=== PATIENT | female | born 1965 | race Caucasian/White ===

== ENCOUNTER 2016-07-29 08:44 | Day surgery (SDC) | payer MEDICARE, MEDICAID ==
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
[~2016-07-29 08:44] MED LIST: Famotidine IV* 10 MG/ML 2 ML (20 mg) IV ONE; Lidocaine 1% INJ* 10 MG/ML 30 ML SDV ONE
[2016-07-29] MEDS ORDERED: Famotidine IV* 10 MG/ML 2 ML (20 mg) ONE (09:01)
[2016-07-29] MEDS ORDERED: Buffered Lidocaine 1% SYRIN* 5 ML/SYR SYRINGE ONE (09:19)
[2016-07-29] MEDS ORDERED: fentaNYL* 50 MCG/ML 2 ML VIAL (100 MCG VIAL) ONE (09:21)
[2016-07-29] MEDS ORDERED: Midazolam* 1 MG/ML 5 ML VIAL (5 MG) ONE (09:21)
[2016-07-29] MEDS ORDERED: Propofol* 10 MG/ML 20 ML BTL IV PUSH ONE (09:24)
[2016-07-29] MEDS ORDERED: Ondansetron INJ* 2 MG/ML VIAL ONE (09:24)
[2016-07-29] MEDS ORDERED: Ketorolac INJ* 30 MG/ML 1 ML VIAL ONE (09:24)
[2016-07-29] MEDS ORDERED: Lidocaine 2% PF * 5 ML VIAL ONE (09:24)
[2016-07-29] MEDS ORDERED: Acetaminophen TAB* 325 MG PO PRN (09:43)
[2016-07-29 10:34] VITALS: BP 136/70
--- NOTE | 2016-07-30 00:17 | OP ---
DATE OF OPERATION: 07/29/16 [facility] DATE OF : 67 SURGEON: Lorie Galeas MD INFORMATION SECURITY ARCHITECT: DAPHNE Plascencia ANESTHESIOLOGIST: Sarah Ledezma MD ANESTHESIA: Local MAC. PRE-OP DIAGNOSIS: Left long finger, trigger finger. POST-OP DIAGNOSIS: Left long finger trigger finger. OPERATIVE PROCEDURE: Left long finger trigger release. ESTIMATED BLOOD LOSS: Zero. TOURNIQUET TIME: About 5 minutes. INDICATIONS FOR PROCEDURE: Jessy is a 51-year-old female with clicking and locking of her left long finger. She has failed conservative treatment and presents now for long finger trigger release. DESCRIPTION OF PROCEDURE: The patient was brought to the operating room, was given a sedation anesthetic and a local infiltration of 10 cc of 1% plain lidocaine in the palm of her left hand overlying the A1 shelley of the middle finger. Skin of her left hand and forearm was prepped and draped in the usual sterile fashion. The hand and forearm were exsanguinated and the tourniquet elevated to 250 mmHg. A transverse incision was made, centered over the A1 shelley of the left long finger. We dissected bluntly through the subcutaneous tissue. The digital neurovascular bundles were retracted by the surgical services manager, Bereket Guajardo. The A1 shelley was incised longitudinally completely releasing the FDS and FDP tendons, which were in good conditions. The wound was irrigated and the skin edges were reapproximated with 4-0 nylon suture. The wound was dressed with Xeroform, 4x4, Webril, and an Todd wrap. The patient tolerated the procedure well, was brought to the recovery room in good condition. [id number]/[facility] #: [id number] [facility]
== END 2016-07-29 10:46 | disposition home or self-care (01) ==
LOC: OREAST 08:44
PROVIDERS: ATTEND Orthopaedic Surgery
DX: M65.332 Trigger finger, left middle finger (principal); I10 Essential (primary) hypertension; J44.9 Chronic obstructive pulmonary disease, unspecified; Z72.0 Tobacco use; E11.9 Type 2 diabetes mellitus without complications; Z79.4 Long term (current) use of insulin
CPT/HCPCS: J1885; J2001; J2250; J2405; J2704; J3010

== ENCOUNTER 2017-06-22 13:06 | Emergency (ER) | payer MEDICARE, MEDICAID ==
[2017-06-22 13:21] VITALS: BP 135/83
--- NOTE | 2017-06-22 14:53 | RAD ---
INDICATION: RIGHT wrist and forearm pain involving the distal radius and first through third fingers following lifting injury 3 days ago. History of neuropathy. COMPARISON: No prior exams available on the [facility] PACS for comparison. TECHNIQUE: AP, lateral, and oblique views RIGHT wrist. AP and lateral views RIGHT forearm. REPORT AND IMPRESSION: Negative for fracture or articular malalignment at the forearm or wrist. No significant arthropathic change evident. Mild dorsal soft tissue swelling at the forearm and wrist.
--- NOTE | 2017-06-22 14:53 | RAD ---
INDICATION: RIGHT wrist and forearm pain involving the distal radius and first through third fingers following lifting injury 3 days ago. History of neuropathy. COMPARISON: No prior exams available on the [facility] PACS for comparison. TECHNIQUE: AP, lateral, and oblique views RIGHT wrist. AP and lateral views RIGHT forearm. REPORT AND IMPRESSION: Negative for fracture or articular malalignment at the forearm or wrist. No significant arthropathic change evident. Mild dorsal soft tissue swelling at the forearm and wrist.
--- NOTE | 2017-06-22 15:04 | UC ---
Upper Extremity HPI - HPI Summary HPI Summary: 52 yo WF c/o right wrist and forearm pain after lifting many boxes and feels a soft tissue "bump" on the distal portion of her right wrist with mild paresthesia - History of Current Complaint Chief Complaint: UCUpperExtremity Stated Complaint: WRIST INJURY Time Seen by Provider: 06/22/17 13:28 Hx Obtained From: Patient Hx Last Menstrual Period: ablasion Onset/Duration: Lasting Days Severity Initially: Moderate Severity Currently: Moderate Pain Intensity: 6 - Allergies/Home Medications Allergies/Adverse Reactions: Allergies Allergy/AdvReac Type Severity Reaction Status Date / Time Adhesive Tape [Paper Tape] Allergy Unknown Verified 07/29/16 09:10 Reaction Details ibuprofen [From Motrin] Allergy Vomiting Verified 06/22/17 13:29 latex Allergy Unknown Verified 06/22/17 13:30 Reaction Details meperidine [From Demerol] Allergy Vomiting Verified 06/22/17 13:30 nickel Allergy Rash Verified 06/22/17 13:30 Penicillins Allergy Anaphylatic Verified 06/22/17 13:29 Shock shellfish derived Allergy Hives Verified 06/22/17 13:29 Sulfa (Sulfonamide Allergy Rash Verified 06/22/17 13:29 Antibiotics) bee sting Allergy Unknown Uncoded 07/29/16 09:10 Reaction Details environmental Allergy Unknown Uncoded 07/29/16 09:10 Reaction Details Home Medications: Home Medications Albuterol HFA INHALER* [Ventolin HFA Inhaler*] 2 puff INH Q4H PRN 06/22/17 [ History Confirmed 06/22/17] Cyanocobalamin TAB* [Vitamin B12 TAB*] 1,000 mcg PO DAILY 06/22/17 [History Confirmed 06/22/17] Insulin GLARGINE(*) [Lantus(*)] 40 units SUBCUT BID 06/22/17 [History Confirmed 06/22/17] PMH/Surg Hx/FS Hx/Imm Hx Previously Healthy: Yes - Surgical History Surgical History: Yes Surgery Procedure, Year, and Place: Cholecystectomy 2001 [facility] [place]; LEEP 2008 [facility] [place]; Uterine Ablation 2009 [facility] [place]; Colon polyp x3 2001,2006, 2011; Cardiac Catheterization 2011 NO [facility] Hidradenitis I&D 2011, 2012 - Social History Alcohol Use: None Substance Use Type: None Smoking Status (MU): Light Every Day Tobacco Smoker Type: Cigarettes Amount Used/How Often: 1/2 PPD Length of Time of Smoking/Using Tobacco: 24 yr Have You Smoked in the Last Year: Yes Household Exposure Type: Cigarettes Review of Systems Constitutional: Negative Skin: Negative Eyes: Negative ENT: Negative Respiratory: Negative Cardiovascular: Negative Gastrointestinal: Negative Genitourinary: Negative Motor: Negative Neurovascular: Negative Musculoskeletal: Other: - right wrist pain Neurological: Negative Psychological: Negative All Other Systems Reviewed And Are Negative: Yes Physical Exam Triage Information Reviewed: Yes Vital Signs: Initial Vital Signs Temp 36.7 C 06/22/17 13:15 Pulse 78 06/22/17 13:15 Resp 16 06/22/17 13:15 BP 135/83 06/22/17 13:15 Pulse Ox 96 06/22/17 13:15 Eye Exam: Normal ENT Exam: Normal Dental Exam: Normal Neck exam: Normal Neck: Positive: 1 Respiratory Exam: Normal Cardiovascular Exam: Normal Abdominal Exam: Normal Musculoskeletal: Positive: Other: - right distal wrist TTP, small 1x1cm cystic mobile protrusion palpated over the radial styloid area, TTP over right wrist up to mid forearm Neurological Exam: Normal Psychological Exam: Normal Skin Exam: Normal Upper Extremity Course/Dx - Course Course Of Treatment: right wrist strain/sprain and possible ganglionic cyst, if cystic skin protrusion does not resorb after 2-3 weeks advised to go see production tech. - Differential Dx/Diagnosis Provider Diagnoses: Right wrist sprain Discharge - Sign-Out/Discharge Documenting (check all that apply): Discharge - Discharge Plan Condition: Stable Disposition: HOME Patient Education Materials: Wrist Sprain (ED) Referrals: Ngyuen Moulton MD [Primary Care Provider] - Additional Instructions: please follow up with orthopedics if pain persists > 2 weeks - Billing Disposition and Condition Condition: STABLE Disposition: HOME
== END 2017-06-22 15:34 | disposition home or self-care (01) ==
LOC: UCEAST 13:06
DX: S63.501A Unspecified sprain of right wrist, initial encounter (principal); X50.0XXA Overexertion from strenuous movement or load, initial encounter; Y93.89 Activity, other specified; Y92.9 Unspecified place or not applicable; Z88.6 Allergy status to analgesic agent; Z91.030 Bee allergy status; Z91.040 Latex allergy status; Z88.5 Allergy status to narcotic agent; Z88.0 Allergy status to penicillin; Z88.2 Allergy status to sulfonamides; Z91.048 Other nonmedicinal substance allergy status; F17.210 Nicotine dependence, cigarettes, uncomplicated
CPT/HCPCS: 99212; G0463

== ENCOUNTER 2017-07-11 06:33 | Day surgery (SDC) | payer MEDICARE, MEDICAID ==
--- NOTE | 2017-07-07 09:05 | HP ---
PREOPERATIVE HISTORY AND PHYSICAL: DATE OF ADMISSION/SURGERY: 07/11/17 DATE OF OFFICE VISIT/ENCOUNTER: 07/06/17 ATTENDING SURGEON: Lorie Galeas MD* (dictated by DAPHNE Veloz). GALVANIZING POT RUNNER: Dr. Dos Santos. PROCEDURE: Excision, mass right wrist. CHIEF COMPLAINT: Right wrist mass. HISTORY OF PRESENT ILLNESS: This is a 52-year-old female, who complains of a lump on the volar radial aspect of her right wrist. It has been present for approximately a month. She noticed it after lifting a heavy box of books; however, she is not sure if that is what caused the problem. She denies any adiel injury. She complains of occasional tingling up into her thumb. The lump bothers her when any pressure is applied to it or when she writes, types, lifts , or turns her wrist. This is her dominant hand. The cyst is bothersome enough that she would like to have it surgically removed. She is a pain clinic patient for chronic neck pain and also has a history of a cardiac catheterization in 2011. Her vice president regulatory is Dr. Dos Santos. She saw him earlier in June 2017 and had an echocardiogram performed on 06/12/17. PAST MEDICAL HISTORY: 1. Sleep apnea, with CPAP. 2. Diabetes. 3. GERD. 4. History of cervical cancer. 5. History of PVCs. 6. COPD. 7. Asthma. 8. High cholesterol. 9. Depression/anxiety, PTSD. 10. Seasonal allergies. 11. Gastroparesis. 12. Chronic pancreatitis. 13. Chronic pain from a neck injury. 14. Hidradenitis. PAST SURGICAL HISTORY: 1. Polyp removed from the colon. 2. Uterine ablation. 3. Cholecystectomy. 4. Cardiac catheterization in 2011. CURRENT MEDICATIONS: 1. Acetaminophen 500 mg 2 tablets every 6 hours p.r.n. pain. 2. Atorvastatin calcium 80 mg daily. 3. Breo Ellipta 100/25 mcg inhaler 1 puff inhaled daily. 4. Bydureon 2 mg, inject 2 mg subcu weekly. 5. Cyclobenzaprine HCl 5 mg 1 tab q.8 hours p.r.n. pain. 6. Humalog KwikPen 100 units/mL sliding scale. 7. Lantus SoloSTAR 100 units/mL inject 40 units b.i.d. 8. Lidocaine 5% apply to painful area 3 times a day p.r.n. 9. Metformin HCl 500 mg b.i.d. 10. Omeprazole 40 mg daily. 11. ProAir HFA 108 (90 base) mcg/act 2 puffs q.4 hours p.r.n. 12. Tramadol HCl 50 mg 1 to 2 tabs q.6 hours p.r.n. pain. 13. Vitamin B12 ER 1000 mcg daily. ALLERGIES: PENICILLIN, IBUPROFEN, and ALEVE caused anaphylaxis; DEMEROL and SULFA ANTIBIOTICS caused nausea, vomiting, and hives. The patient is also allergic to ASPIRIN, BEE STINGS, LATEX, and PAPER TAPE. FAMILY MEDICAL HISTORY: Cardiac disease and hypertension. 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 She is a current smoker, currently she smokes anywhere from 5 cigarettes to half a pack per day and has done so for the past 35 years. She denies recreational drug use and does not drink alcohol. REVIEW OF SYSTEMS: General: Positive for night sweats, weakness, and fatigue. No unexplained weight loss or gain. No known anesthesia problems. HEENT: Positive for lightheadedness, visual changes including blurred vision, which she attributes to her diabetes. Negative for headache and syncopal episodes. Cardiothoracic: Positive for palpitations. Negative for hypertension, chest pain, edema. Respiratory: Positive for shortness of breath with exertion, chronic cough, and wheezing with seasonal allergies. GI: Negative for nausea, vomiting, diarrhea, constipation. Positive for GERD. : Negative for nocturia, urinary frequency, urgency, history of UTIs, or kidney problems. Musculoskeletal: Positive for current complaint. Positive for chronic neck pain. Neurological: Positive for peripheral neuropathy and anxiety, depression , and PTSD. Negative for history of seizure or stroke. Endocrine: Positive for diabetes. Negative for thyroid issues. Hematologic: Negative for easy bruising, anemia, bleeding disorders, history of DVT. Infectious Disease: Negative for history of MRSA, hepatitis C, HIV. PHYSICAL EXAMINATION GENERAL: Well-developed, well-nourished, 52-year-old female, in no acute distress. VITAL SIGNS: Height 5 feet 2-1/4 inches, pulse rate 68, blood pressure 124/72, weight 218 pounds. HEENT: Normocephalic, atraumatic. Pupils are equal, round, and reactive to light and accommodation. Extraocular movements are intact. Throat is clear. NECK: Supple. No palpable lymph nodes. PULMONARY: Lungs are clear to auscultation bilaterally. No wheezes, rales, or rhonchi. CARDIOVASCULAR: Regular rate and rhythm. S1, S2. No murmurs, rubs, or gallops. No edema. ABDOMEN: Positive bowel sounds, soft, nontender. NEUROLOGICAL: Alert and oriented x3. Cranial nerves II through XII are intact. Sensation is intact to light touch. MUSCULOSKELETAL: On exam of her right wrist, there is a cyst on the volar radial aspect. It is tender to palpation. She has good range of motion of the wrist, but increased pain with extension. She can make a full fist and has full extension in the fingers. There is mildly positive Tinel's at the cyst. Her neurovascular function is intact. IMAGING STUDIES: X-rays, AP, lateral, and oblique, of the right wrist appear normal. IMPRESSION: Right wrist ganglion cyst. PLAN: The patient is scheduled to undergo an excision of mass, right wrist, with Dr. Galeas on 07/11/17. She will return to the office 10 days postop for followup and suture removal. She has a supply of tramadol as prescribed by her primary care physician, Dr. Moulton, that she will plan on using for postoperative pain management. DAPHNE VELOZ [id number]/[facility] #: [id number] RUT
[~2017-07-11 06:33] MED LIST changes: +Buffered Lidocaine 0.9% SYRIN* 5 ML/SYR SYRINGE INTRADERM ONE; -Famotidine IV* 10 MG/ML 2 ML (20 mg) IV ONE; +Famotidine TAB* 20 MG PO ONE; -Lidocaine 1% INJ* 10 MG/ML 30 ML SDV ONE; +Metoclopramide IV* 5 MG/ML 2 ML VIAL IV SLOW PU ONE
[2017-07-11] MEDS ORDERED: Insulin LISPRO* 1 UNITS UNIT SUBCUT ONE ×2 (07:15→07:19)
[2017-07-11] MEDS ORDERED: Famotidine TAB* 20 MG ONE (07:22)
[2017-07-11] MEDS ORDERED: Metoclopramide IV* 5 MG/ML 2 ML VIAL ONE (07:22)
[2017-07-11] MEDS ORDERED: Lidocaine 1% INJ* 10 MG/ML 30 ML SDV ONE (08:05)
[2017-07-11] MEDS ORDERED: Midazolam* 1 MG/ML 2 ML VIAL (2 MG) ONE (08:08)
[2017-07-11] MEDS ORDERED: fentaNYL* 50 MCG/ML 2 ML VIAL (100 MCG VIAL) ONE (08:08)
[2017-07-11] MEDS ORDERED: Propofol* 10 MG/ML 20 ML BTL IV PUSH ONE (08:34)
[2017-07-11 09:11] VITALS: BP 137/94
[2017-07-11] MEDS ORDERED: Naloxone* 0.4 MG/ML 1 ML VIAL IV PRN (09:49)
--- NOTE | 2017-07-11 17:53 | OP ---
DATE OF OPERATION: 07/11/17 [facility] DATE OF : 67 SURGEON: Lorie Galeas MD BLOOD BANK LABORATORY TECHNOLOGIST: DAPHNE Veloz ANESTHESIA: Local MAC. PRE-OP DIAGNOSIS: Right wrist mass. POST-OP DIAGNOSIS: Right wrist mass. OPERATIVE PROCEDURE: Removal of right wrist mass. ESTIMATED BLOOD LOSS: Zero. TOURNIQUET TIME: About 15 minutes. INDICATION FOR PROCEDURE: Jessy is a 52-year-old female with a painful mass on the volar radial aspect of her right wrist. She presents for removal. DESCRIPTION OF PROCEDURE: The patient was brought to the operating room, was given a sedation anesthetic and a local infiltration of a total of 15 cc of 1% plain lidocaine on the volar radial aspect of the right wrist. The skin of her right upper extremity was prepped and draped in the usual sterile fashion. The hand and forearm were exsanguinated and the tourniquet elevated to 250 mmHg. A chevron incision was made centered over the mass. We dissected carefully, bluntly through the subcutaneous tissue down to the mass, which appeared to be a ganglion cyst emanating from the wrist joint capsule. Branches of the radial artery were carefully dissected away from the mass and the mass itself was removed and traced down with its stalk to the radiocarpal joint. It was removed with a small potion of the radial carpal joint capsule. The edges of the capsule were cauterized with the Bovie. The wound was irrigated and skin edges were reapproximated with 4-0 nylon suture. The wound was dressed with Xeroform, 4x4, Webril, and an Todd wrap. The patient tolerated the procedure well, and was brought to the recovery room in good condition. [id number]/[facility] #: [id number] [facility]ENTER[facility]
== END 2017-07-11 09:18 | disposition home or self-care (01) ==
LOC: OREAST 06:33
PROVIDERS: ATTEND Orthopaedic Surgery
DX: M67.431 Ganglion, right wrist (principal); E11.9 Type 2 diabetes mellitus without complications; Z79.4 Long term (current) use of insulin; Z79.84 Long term (current) use of oral hypoglycemic drugs; F17.210 Nicotine dependence, cigarettes, uncomplicated; J44.9 Chronic obstructive pulmonary disease, unspecified; I49.3 Ventricular premature depolarization; F41.8 Other specified anxiety disorders; F43.10 Post-traumatic stress disorder, unspecified; Z85.41 Personal history of malignant neoplasm of cervix uteri
CPT/HCPCS: 88304; A9270-GY; J2250; J2704; J2765; J3010

== ENCOUNTER 2020-11-23 13:43 | Inpatient (IN) ==
[2020-11-23] MEDS ORDERED: cefTRIAXone 1 gm/50 mL NS BAG 1 GM/50 ML BAG IV ONE (14:24)
[2020-11-23] MEDS ORDERED: Piperacillin/Tazobac ADVAN 3.375 GM in NS 0.9% 100 ml BAG 100 ML IV ONE (14:31)
[2020-11-23] MEDS ORDERED: Lactated Ringers 1000 ml BAG 1,000 ML IV ONE (14:33)
[2020-11-23] MEDS ORDERED: Vancomycin 1,250 MG in NS 0.9% 250 ml 250 ML IVPB SCH ×2 (15:00→18:32)
[2020-11-23 15:16] LABS: Venous Bicarbonate HCO3 27.9 mmol/L (24-28)
[2020-11-23 15:24] LABS: ABS Lymphocytes 0.9 10^3/ul (1.0-4.8); ABS Monocytes 1.2 10^3/ul (0-0.8); ABS Neutrophils 13.4 10^3/ul (1.5-7.7); Eosinophil % 0.1 %; Hematocrit 46 % (35-47); Hemoglobin 15.4 g/dL (12.0-16.0); Lymphocyte % 5.9 %; Mean Corpuscular HGB Conc 34 g/dL (31-36); Mean Corpuscular Hemoglobin 29 pg (27-31); Mean Corpuscular Volume 85 fL (80-97); Mean Platelet Volume 7.5 fL (7.4-10.4); Nucleated Red Blood Cells % 0.1; Platelet Count 334 10^3/uL (150-450); Red Blood Count 5.32 10^6 /uL (3.70-4.87); Red Cell Distribution Width 13 % (10-15); White Blood Count 15.6 10^3/uL (3.5-10.8)
[2020-11-23 15:37] LABS: Troponin I 0.01 ng/mL (<0.03)
[2020-11-23 15:43] LABS: INR 1.17 (0.86-1.15)
[2020-11-23 15:44] LABS: Activated Partial Thrombo Time 29.8 seconds (26.0-38.0)
[2020-11-23 15:47] LABS: Albumin 3.5 g/dL (3.2-5.2); Albumin/Globulin Ratio 0.9 (1-3); C Reactive Protein 260.35 mg/L (<8.01); Calcium 9.4 mg/dL (8.6-10.3); EGFR African American 114.9 (>60); Potassium 3.7 mmol/L (3.5-5.0); Total Bilirubin 0.8 mg/dL (0.2-1.0); Total Protein 7.5 g/dL (6.4-8.9)
[2020-11-23] MEDS ORDERED: Iodixanol (CONTRAST) 320 MG/ML 100 ML SDV IV ONE (16:44)
[2020-11-23 17:57] LABS: Urine Appearance Clear; Urine Bilirubin Negative (Negative); Urine Blood 1+ (Negative); Urine Color Yellow; Urine Glucose 3+(>=500 mg/dL) (Negative); Urine Ketones 1+ (Negative); Urine Nitrite Negative (Negative); Urine Protein Negative (Negative); Urine Specific Gravity 1.027 (1.002-1.030); Urine Urobilinogen Negative (Negative)
[2020-11-23 18:04] LABS: Urine Bacteria Absent (Absent); Urine Red Blood Cell Trace(0-2/hpf) (Absent); Urine Squamous Epithelial Cell Present (Absent); Urine White Blood Cell Trace(0-5/hpf) (Absent)
[2020-11-23 18:07] LABS: Rapid COVID-19 Molecular Undetected (Undetected)
[2020-11-23] MEDS ORDERED: Magnesium Hydroxide LIQ 30 ML UDC PO PRN (18:23)
[2020-11-23] MEDS ORDERED: NS 0.9% 1000 ml BAG 1,000 ML IV SCH (18:30)
[2020-11-23] MEDS ORDERED: Albuterol HFA INHALER 8 gm MDI INH PRN (18:34)
[2020-11-23 18:46] LABS: Erythrocyte Sed Rate 85 mm/Hr (0-29)
[2020-11-23] MEDS ORDERED: Dextrose 50% Syringe 50 ml 25 GM/50 ML SYRINGE IV PUSH PRN (18:51)
[2020-11-23] MEDS ORDERED: Cefepime ADVAN 1 GM in NS 0.9% 50 ML 50 ML IVPB SCH (19:00)
[2020-11-23] MEDS ORDERED: Vancomycin per Pharmacy 1 EA NOTE FOLLOW UP SCH (20:00)
[2020-11-23] MEDS: Cefepime 1 GM in Dextrose 1 GM/50 ML BAG IV SCH (21:02)
[2020-11-23] MEDS: Enoxaparin 40 MG/0.4 ML SYR SUBCUT SCH (21:02)
[2020-11-23] MEDS: Insulin GLARGINE 100 un/ml 10 ml VIAL SUBCUT SCH (21:03)
[2020-11-23] MEDS: NF: ICOSAPENT ETHYL 1 GM CAPSULE (NF) PO SCH (21:56)
[2020-11-23] MEDS: Clindamycin 600 MG/D5W BAG 600 MG/50 ML BAG IV SCH (22:45)
[2020-11-24] MEDS: Vancomycin 1,500 MG in NS 0.9% 250 ml 250 ML IVPB SCH ×2 (00:53→11:34)
[2020-11-24] MEDS: Clindamycin 600 MG/D5W BAG 600 MG/50 ML BAG IV SCH ×2 (05:12→17:36)
[2020-11-24 06:07] LABS: Hematocrit 38 % (35-47); Hemoglobin 12.9 g/dL (12.0-16.0); Mean Corpuscular HGB Conc 34 g/dL (31-36); Mean Corpuscular Hemoglobin 29 pg (27-31); Mean Corpuscular Volume 84 fL (80-97); Mean Platelet Volume 7.1 fL (7.4-10.4); Platelet Count 298 10^3/uL (150-450); Red Blood Count 4.48 10^6 /uL (3.70-4.87); Red Cell Distribution Width 13 % (10-15); White Blood Count 14.3 10^3/uL (3.5-10.8)
[2020-11-24 06:25] LABS: Calcium 8.5 mg/dL (8.6-10.3); EGFR African American 180.3 (>60); Potassium 3.4 mmol/L (3.5-5.0)
[2020-11-24] MEDS: Cefepime 1 GM in Dextrose 1 GM/50 ML BAG IV SCH ×2 (08:35→20:47)
[2020-11-24] MEDS: NF: ICOSAPENT ETHYL 1 GM CAPSULE (NF) PO SCH (08:35)
[2020-11-24] MEDS ORDERED: Potassium Chlor 20 meq TAB.ER PO ONE (08:36)
[2020-11-24] MEDS ORDERED: Nicotine PATCH 21 MG/24 HR PATCH TRANSDERM SCH (09:00)
[2020-11-24 10:03] LABS: Magnesium 1.6 mg/dL (1.9-2.7)
[2020-11-24] MEDS ORDERED: Nicotine Lozenge mini 2 MG LOZNG.MINI MT PRN (12:01)
[2020-11-24] MEDS ORDERED: Magnesium Sulfate 2 gm BAG 2 GM/50 ML BAG IVPB ONE (18:04)
[2020-11-24] MEDS: Enoxaparin 40 MG/0.4 ML SYR SUBCUT SCH (20:46)
[2020-11-24] MEDS: Insulin GLARGINE 100 un/ml 10 ml VIAL SUBCUT SCH (20:46)
[2020-11-25 04:48] LABS: Hematocrit 36 % (35-47); Hemoglobin 12.2 g/dL (12.0-16.0); Mean Corpuscular HGB Conc 34 g/dL (31-36); Mean Corpuscular Hemoglobin 29 pg (27-31); Mean Corpuscular Volume 85 fL (80-97); Platelet Count 306 10^3/uL (150-450); Red Blood Count 4.22 10^6 /uL (3.70-4.87); Red Cell Distribution Width 13 % (10-15); White Blood Count 14.3 10^3/uL (3.5-10.8)
[2020-11-25 05:05] LABS: Calcium 8.5 mg/dL (8.6-10.3); EGFR African American 163.1 (>60); EGFR Non-African American 134.8 (>60); Magnesium 1.8 mg/dL (1.9-2.7); Potassium 3.7 mmol/L (3.5-5.0)
[2020-11-25] MEDS ORDERED: Magnesium Sulfate 2 gm BAG 2 GM/50 ML BAG IVPB ONE (06:30)
[2020-11-25] MEDS ORDERED: Flu vaccine *QUAD* 2021-22* 0.5 ML SYRINGE IM ONE (09:00)
[2020-11-25] MEDS: Cefepime 1 GM in Dextrose 1 GM/50 ML BAG IV SCH ×2 (09:38→21:37)
[2020-11-25] MEDS: Clindamycin 600 MG/D5W BAG 600 MG/50 ML BAG IV SCH ×3 (10:52→18:06)
[2020-11-25] MEDS ORDERED: Vancomycin Trough Check NOTE FOLLOW UP ONE (11:30)
[2020-11-25] MEDS: Insulin GLARGINE 100 un/ml 10 ml VIAL SUBCUT SCH (21:38)
[2020-11-25] MEDS: Enoxaparin 40 MG/0.4 ML SYR SUBCUT SCH (21:38)
[2020-11-26] MEDS ORDERED: NS 0.9% 1000 ml BAG 1,000 ML IV ONE (00:54)
[2020-11-26] MEDS: Clindamycin 600 MG/D5W BAG 600 MG/50 ML BAG IV SCH ×3 (01:03→17:47)
[2020-11-26 05:00] LABS: Hematocrit 38 % (35-47); Hemoglobin 12.8 g/dL (12.0-16.0); Mean Corpuscular HGB Conc 34 g/dL (31-36); Mean Corpuscular Hemoglobin 29 pg (27-31); Mean Corpuscular Volume 84 fL (80-97); Mean Platelet Volume 7.3 fL (7.4-10.4); Platelet Count 348 10^3/uL (150-450); Red Blood Count 4.47 10^6 /uL (3.70-4.87); Red Cell Distribution Width 14 % (10-15); White Blood Count 14.9 10^3/uL (3.5-10.8)
[2020-11-26 05:14] LABS: Calcium 8.6 mg/dL (8.6-10.3); EGFR African American 139.4 (>60); EGFR Non-African American 115.2 (>60); Magnesium 1.8 mg/dL (1.9-2.7)
[2020-11-26] MEDS ORDERED: Magnesium Sulfate 2 gm BAG 2 GM/50 ML BAG IVPB ONE (06:33)
[2020-11-26] MEDS ORDERED: Cefepime ADVAN 2 GM in NS 0.9% 50 ML 50 ML IVPB SCH (07:00)
[2020-11-26] MEDS ORDERED: Cefepime ADVAN 1 GM in NS 0.9% 50 ML 50 ML IVPB SCH (07:00)
[2020-11-26] MEDS: CEFEPIME 2 GM in Dextrose 50 mL IV SCH ×3 (07:48→23:39)
[2020-11-26] MEDS ORDERED: Insulin GLARGINE 100 un/ml 10 ml VIAL SUBCUT SCH (09:00)
[2020-11-26] MEDS: Enoxaparin 40 MG/0.4 ML SYR SUBCUT SCH (20:56)
[2020-11-26] MEDS: Insulin GLARGINE 100 un/ml 10 ml VIAL SUBCUT SCH (20:56)
[2020-11-27] MEDS: Clindamycin 600 MG/D5W BAG 600 MG/50 ML BAG IV SCH ×3 (00:47→17:34)
[2020-11-27] MEDS: CEFEPIME 2 GM in Dextrose 50 mL IV SCH ×3 (07:36→23:50)
[2020-11-27 07:43] LABS: Hematocrit 33 % (35-47); Mean Corpuscular HGB Conc 33 g/dL (31-36); Mean Corpuscular Hemoglobin 28 pg (27-31); Mean Corpuscular Volume 85 fL (80-97); Mean Platelet Volume 7.8 fL (7.4-10.4); Platelet Count 367 10^3/uL (150-450); Red Blood Count 3.89 10^6 /uL (3.70-4.87); Red Cell Distribution Width 13 % (10-15); White Blood Count 16.7 10^3/uL (3.5-10.8)
[2020-11-27] MEDS: HYDROmorphone 0.5 MG/0.5 ML SYRINGE IV SLOW PU PRN ×3 (12:27→21:20)
[2020-11-27] MEDS: Enoxaparin 40 MG/0.4 ML SYR SUBCUT SCH (21:20)
[2020-11-27] MEDS: Insulin GLARGINE 100 un/ml 10 ml VIAL SUBCUT SCH (21:21)
[2020-11-28] MEDS: Clindamycin 600 MG/D5W BAG 600 MG/50 ML BAG IV SCH ×2 (00:51→08:58)
[2020-11-28] MEDS: HYDROmorphone 0.5 MG/0.5 ML SYRINGE IV SLOW PU PRN ×4 (00:51→19:21)
[2020-11-28 05:57] LABS: Hematocrit 34 % (35-47); Hemoglobin 11.4 g/dL (12.0-16.0); Mean Corpuscular HGB Conc 33 g/dL (31-36); Mean Corpuscular Hemoglobin 28 pg (27-31); Mean Corpuscular Volume 85 fL (80-97); Mean Platelet Volume 8.3 fL (7.4-10.4); Platelet Count 312 10^3/uL (150-450); Red Blood Count 4.03 10^6 /uL (3.70-4.87); Red Cell Distribution Width 13 % (10-15); White Blood Count 14.2 10^3/uL (3.5-10.8)
[2020-11-28] MEDS: CEFEPIME 2 GM in Dextrose 50 mL IV SCH (07:52)
[2020-11-28] MEDS ORDERED: ceFAZolin 1 GM ADVAN 1 GM in NS 0.9% 50 ML 50 ML IVPB SCH (11:00)
[2020-11-28] MEDS: ceFAZolin 2 GM in NS 100 MLS Q8H (Pharmacy Admix) IVPB SCH ×2 (12:34→20:28)
[2020-11-28] MEDS: Enoxaparin 40 MG/0.4 ML SYR SUBCUT SCH (20:29)
[2020-11-28] MEDS: Insulin GLARGINE 100 un/ml 10 ml VIAL SUBCUT SCH (20:56)
[2020-11-29] MEDS: ceFAZolin 2 GM in NS 100 MLS Q8H (Pharmacy Admix) IVPB SCH ×3 (04:35→20:24)
[2020-11-29] MEDS ORDERED: Ondansetron 4 mg VIAL 2 MG/ML 2 ml VIAL IV PRN (07:52)
[2020-11-29] MEDS: HYDROmorphone 0.5 MG/0.5 ML SYRINGE IV SLOW PU PRN (14:16)
[2020-11-29] MEDS: Enoxaparin 40 MG/0.4 ML SYR SUBCUT SCH (20:23)
[2020-11-29] MEDS: Insulin GLARGINE 100 un/ml 10 ml VIAL SUBCUT SCH (20:24)
[2020-11-30] MEDS: ceFAZolin 2 GM in NS 100 MLS Q8H (Pharmacy Admix) IVPB SCH ×3 (03:23→20:22)
[2020-11-30 06:09] LABS: Hematocrit 36 % (35-47); Mean Corpuscular HGB Conc 33 g/dL (31-36); Mean Corpuscular Hemoglobin 28 pg (27-31); Mean Corpuscular Volume 85 fL (80-97); Mean Platelet Volume 6.6 fL (7.4-10.4); Platelet Count 534 10^3/uL (150-450); Red Blood Count 4.25 10^6 /uL (3.70-4.87); Red Cell Distribution Width 14 % (10-15); White Blood Count 11.5 10^3/uL (3.5-10.8)
[2020-11-30] MEDS: HYDROmorphone 0.5 MG/0.5 ML SYRINGE IV SLOW PU PRN ×3 (10:30→20:20)
[2020-11-30] MEDS: Insulin GLARGINE 100 un/ml 10 ml VIAL SUBCUT SCH (21:43)
[2020-11-30] MEDS: Enoxaparin 40 MG/0.4 ML SYR SUBCUT SCH (21:43)
[2020-12-01] MEDS: ceFAZolin 2 GM in NS 100 MLS Q8H (Pharmacy Admix) IVPB SCH ×3 (04:21→21:21)
[2020-12-01 06:48] LABS: Calcium 8.7 mg/dL (8.6-10.3); EGFR African American 126.1 (>60); EGFR Non-African American 104.2 (>60); Potassium 4.4 mmol/L (3.5-5.0)
[2020-12-01] MEDS: HYDROmorphone 0.5 MG/0.5 ML SYRINGE IV SLOW PU PRN (12:22)
[2020-12-01] MEDS: Insulin GLARGINE 100 un/ml 10 ml VIAL SUBCUT SCH (21:29)
[2020-12-01] MEDS: Enoxaparin 40 MG/0.4 ML SYR SUBCUT SCH (21:30)
[2020-12-02] MEDS: ceFAZolin 2 GM in NS 100 MLS Q8H (Pharmacy Admix) IVPB SCH ×3 (04:12→19:57)
[2020-12-02] MEDS ORDERED: Dextrose 50% Syringe 50 ml 25 GM/50 ML SYRINGE IV PUSH PRN (10:44)
[2020-12-02 12:05] LABS: ABS Basophils 0.1 10^3/ul (0-0.2); ABS Eosinophils 0.3 10^3/ul (0-0.6); ABS Lymphocytes 3.2 10^3/ul (1.0-4.8); ABS Monocytes 0.6 10^3/ul (0-0.8); ABS Neutrophils 8.1 10^3/ul (1.5-7.7); Eosinophil % 2.4 %; Hematocrit 38 % (35-47); Hemoglobin 12.7 g/dL (12.0-16.0); Lymphocyte % 25.8 %; Mean Corpuscular HGB Conc 34 g/dL (31-36); Mean Corpuscular Hemoglobin 29 pg (27-31); Mean Corpuscular Volume 85 fL (80-97); Mean Platelet Volume 6.4 fL (7.4-10.4); Platelet Count 534 10^3/uL (150-450); Red Blood Count 4.44 10^6 /uL (3.70-4.87); Red Cell Distribution Width 13 % (10-15); White Blood Count 12.3 10^3/uL (3.5-10.8)
[2020-12-02] MEDS: Insulin GLARGINE 100 un/ml 10 ml VIAL SUBCUT SCH (22:11)
[2020-12-02] MEDS: Enoxaparin 40 MG/0.4 ML SYR SUBCUT SCH (22:12)
[2020-12-03] MEDS: ceFAZolin 2 GM in NS 100 MLS Q8H (Pharmacy Admix) IVPB SCH ×2 (04:22→13:29)
[2020-12-03 11:18] LABS: ABS Basophils 0.1 10^3/ul (0-0.2); ABS Eosinophils 0.3 10^3/ul (0-0.6); ABS Lymphocytes 2.7 10^3/ul (1.0-4.8); ABS Monocytes 0.5 10^3/ul (0-0.8); ABS Neutrophils 9.4 10^3/ul (1.5-7.7); Eosinophil % 2.4 %; Hematocrit 37 % (35-47); Hemoglobin 12.4 g/dL (12.0-16.0); Mean Corpuscular HGB Conc 33 g/dL (31-36); Mean Corpuscular Hemoglobin 28 pg (27-31); Mean Corpuscular Volume 84 fL (80-97); Mean Platelet Volume 6.4 fL (7.4-10.4); Platelet Count 530 10^3/uL (150-450); Red Blood Count 4.42 10^6 /uL (3.70-4.87); Red Cell Distribution Width 14 % (10-15); White Blood Count 13.1 10^3/uL (3.5-10.8)
[2020-12-03 11:34] LABS: Calcium 8.8 mg/dL (8.6-10.3); EGFR African American 119.2 (>60); EGFR Non-African American 98.5 (>60); Potassium 4.8 mmol/L (3.5-5.0)
[2020-12-03 15:52] VITALS: BP 167/83
== END 2020-12-03 15:25 | disposition home or self-care (01) | DRG 854 ==
LOC: ED 13:43 → SSU 18:23 → SUATTDRO 18:23 → SSU 19:09 → UNDODISIN 12-03 15:25
PROVIDERS: ADMIT Internal Medicine; ATTEND Internal Medicine

== ENCOUNTER 2022-01-25 04:24 | Inpatient (IN) ==
[2022-01-25] MEDS ORDERED: Ondansetron 4 mg VIAL 2 MG/ML 2 ml VIAL IV ONE (04:30)
[2022-01-25] MEDS ORDERED: Lactated Ringers 1000 ml BAG 1,000 ML IV ONE ×2 (04:30→07:02)
[2022-01-25] MEDS ORDERED: Ondansetron 4 mg VIAL 2 MG/ML 2 ml VIAL ONE (04:30)
[2022-01-25 06:42] LABS: Hematocrit 46 % (35-47); Hemoglobin 14.7 g/dL (12.0-16.0); Mean Corpuscular HGB Conc 32 g/dL (31-36); Mean Corpuscular Hemoglobin 28 pg (27-31); Mean Corpuscular Volume 89 fL (80-97); Platelet Count 370 10^3/uL (150-450); Red Blood Count 5.24 10^6 /uL (3.70-4.87); Red Cell Distribution Width 14 % (10-15); White Blood Count 25.4 10^3/uL (3.5-10.8)
[2022-01-25 06:49] LABS: ALT 7 U/L (7-52); AST 5 U/L (13-39); Albumin 3.5 g/dL (3.2-5.2); Alkaline Phosphatase 139 U/L (35-149); Blood Urea Nitrogen 39 mg/dL (6-24); Calcium 9.5 mg/dL (8.6-10.3); Chloride 94 mmol/L (101-111); Globulin 3.6 g/dL (2-4); Lipase < 10 U/L (11.0-82.0); Potassium 3.9 mmol/L (3.5-5.0); Sodium 140 mmol/L (135-145); Total Protein 7.1 g/dL (6.4-8.9); eGFR CKD-EPI 57.5 (>60)
[2022-01-25 06:53] LABS: Anion Gap 38 mmol/L (2-11); CO2 Carbon Dioxide 8 mmol/L (22-32); Glucose 647 mg/dL (70-100)
[2022-01-25 07:16] LABS: ABS Basophils 0.1 10^3/ul (0-0.2); ABS Lymphocytes 0.7 10^3/ul (1.0-4.8); ABS Monocytes 1.3 10^3/ul (0-0.8); ABS Neutrophils 23.4 10^3/ul (1.5-7.7); Lymphocyte % 2.6 %
[2022-01-25] MEDS ORDERED: Dextrose 50% Syringe 50 ml 25 GM/50 ML SYRINGE IV PUSH PRN ×2 (07:16→14:50)
[2022-01-25] MEDS ORDERED: Metoclopramide 5 MG/ML VIAL (10 mg) IV ONE (07:28)
[2022-01-25 08:00] LABS: Venous Bicarbonate HCO3 8.7 mmol/L (24-28)
[2022-01-25 08:11] LABS: Activated Partial Thrombo Time 27.5 seconds (26.0-38.0); INR 0.95 (0.89-1.11)
[2022-01-25] MEDS: Potassium Chloride IV 40 MEQ in Lactated Ringers 1000 ml BAG 1,000 ML IVPB SCH (08:34)
[2022-01-25] MEDS ORDERED: Iodixanol (CONTRAST) 320 MG/ML 100 ML SDV IV ONE (09:20)
[2022-01-25] MEDS: Insulin Infusion 100unit/100mL 100 UNIT/100 ML BAG IV SCH ×2 (09:43→15:00)
[2022-01-25 09:52] LABS: High Sensitivity Troponin 1 Hr 10 pg/mL (<15)
[2022-01-25] MEDS ORDERED: Cefepime 2 GM in Dextrose 2 GM/50 ML BAG IV ONE (10:04)
[2022-01-25] MEDS ORDERED: Vancomycin 1,000 MG in NS 0.9% 250 ml 250 ML IVPB ONE (10:05)
[2022-01-25 10:45] LABS: C Reactive Protein 604.14 mg/L (<8.01)
[2022-01-25 10:50] LABS: Urine Appearance Clear; Urine Bilirubin Negative (Negative); Urine Blood 1+ (Small) (Negative); Urine Color Yellow; Urine Glucose 2+ (500mg/dL) (Negative); Urine Ketones 4+ (>=160mg/dL) (Negative); Urine Protein 1+ (30 mg/dL) (Negative); Urine Specific Gravity 1.025 (1.005-1.030)
[2022-01-25 10:51] LABS: Urine Nitrite Negative (Negative); Urine Urobilinogen 0.2 (Negative) (Negative)
[2022-01-25 11:03] LABS: Urine Bacteria Absent (Absent); Urine Red Blood Cell 3+(>10/hpf) (Absent); Urine Squamous Epithelial Cell Present (Absent); Urine White Blood Cell Trace(0-5/hpf) (Absent); Urine Yeast Present (Absent)
[2022-01-25 12:00] LABS: Glucose Confirmatory 486 mg/dL (70-100)
[2022-01-25 12:33] LABS: Glucose Confirmatory 433 mg/dL (70-100)
[2022-01-25 12:43] LABS: Calcium 8.9 mg/dL (8.6-10.3); Potassium 3.2 mmol/L (3.5-5.0); eGFR CKD-EPI 77.6 (>60)
[2022-01-25] MEDS ORDERED: HYDROmorphone 0.5 MG/0.5 ML SYRINGE ONE ×2 (12:46→13:13)
[2022-01-25] MEDS ORDERED: Propofol 10 MG/ML 20 ML BTL ONE (12:56)
[2022-01-25] MEDS ORDERED: Lidocaine 2% PF 5 ML VIAL ONE (12:56)
[2022-01-25] MEDS ORDERED: Clindamycin 900 MG/D5W BAG 900 MG/50 ML BAG IVPB ONE (12:56)
[2022-01-25] MEDS ORDERED: Rocuronium 50 mg VIAL 10 mg/ml 5 ml VIAL (50 mg) ONE ×2 (12:56→16:42)
[2022-01-25] MEDS ORDERED: fentaNYL 100 mcg/2 ml 50 MCG/ML VIAL ONE (12:56)
[2022-01-25] MEDS ORDERED: Midazolam 2 mg/2 ml VIAL 1 mg/ml 2 ml VIAL (2 mg) ONE (12:56)
[2022-01-25] MEDS ORDERED: Naloxone 0.4 mg VIAL 0.4 mg/ml 1 ml VIAL IV PRN (14:49)
[2022-01-25] MEDS ORDERED: Ondansetron 4 mg VIAL 2 MG/ML 2 ml VIAL IV PRN (14:49)
[2022-01-25] MEDS ORDERED: NORMOSOL-R pH 7.4 1000 mL BAG 1,000 ML IV SCH (16:00)
[2022-01-25] MEDS ORDERED: Labetalol IV 5 MG/ML 20 ml VIAL ONE (16:37)
[2022-01-25 16:40] LABS: Calcium 8.5 mg/dL (8.6-10.3); Potassium 3.6 mmol/L (3.5-5.0); eGFR CKD-EPI 88.3 (>60)
[2022-01-25] MEDS: KCL 20 MEQ/100 ML IVPREMIX 20 MEQ/100 ML BAG IV SCH ×2 (17:15→21:46)
[2022-01-25] MEDS: D5W 1/2 NS 1000 ml BAG 1,000 ML IV SCH ×2 (17:16→23:00)
[2022-01-25] MEDS ORDERED: Sugammadex 500 MG/5 ML 5 ml VIAL IV PUSH ONE (17:25)
[2022-01-25] MEDS ORDERED: Albuterol HFA INHALER 8 gm MDI INH PRN (18:11)
[2022-01-25] MEDS: Enoxaparin 40 MG/0.4 ML SYR SUBCUT SCH (20:08)
[2022-01-25] MEDS: Nicotine PATCH 7 MG/24 HR PATCH TRANSDERM SCH (20:10)
[2022-01-25 20:46] LABS: Calcium 8.5 mg/dL (8.6-10.3); Potassium 3.8 mmol/L (3.5-5.0); eGFR CKD-EPI 102.4 (>60)
[2022-01-25] MEDS ORDERED: Vancomycin per Pharmacy 1 EA NOTE FOLLOW UP PRN (20:51)
[2022-01-25] MEDS ORDERED: Vancomycin 1,500 MG in NS 0.9% 250 ml 250 ML IVPB ONE (21:00)
[2022-01-25] MEDS ORDERED: Vancomycin 1,000 MG in NS 0.9% 250 ml 250 ML IVPB SCH (21:00)
[2022-01-25] MEDS: Clindamycin 600 MG/D5W BAG 600 MG/50 ML BAG IV SCH (22:40)
[2022-01-26] MEDS: Cefepime 2 GM in Dextrose 2 GM/50 ML BAG IV SCH ×3 (00:12→23:14)
[2022-01-26] MEDS: Potassium Chloride IV 40 MEQ in Lactated Ringers 1000 ml BAG 1,000 ML IVPB SCH (00:18)
[2022-01-26] MEDS: KCL 20 MEQ/100 ML IVPREMIX 20 MEQ/100 ML BAG IV SCH ×2 (00:42→03:32)
[2022-01-26 00:56] LABS: Calcium 8.3 mg/dL (8.6-10.3); eGFR CKD-EPI 105.5 (>60)
[2022-01-26] MEDS: Vancomycin 1,500 MG in NS 0.9% 250 ml 250 ML IVPB SCH ×2 (01:03→10:24)
[2022-01-26] MEDS: Ondansetron 4 mg VIAL 2 MG/ML 2 ml VIAL IV ONE (01:24)
[2022-01-26] MEDS: Insulin Infusion 100unit/100mL 100 UNIT/100 ML BAG IV SCH ×2 (02:51→03:00)
[2022-01-26 04:57] LABS: Hematocrit 35 % (35-47); Hemoglobin 11.5 g/dL (12.0-16.0); Mean Corpuscular HGB Conc 33 g/dL (31-36); Mean Corpuscular Hemoglobin 28 pg (27-31); Mean Corpuscular Volume 85 fL (80-97); Mean Platelet Volume 7.2 fL (7.4-10.4); Platelet Count 268 10^3/uL (150-450); Red Blood Count 4.14 10^6 /uL (3.70-4.87); Red Cell Distribution Width 14 % (10-15); White Blood Count 15.8 10^3/uL (3.5-10.8)
[2022-01-26 05:17] LABS: Magnesium 1.6 mg/dL (1.9-2.7); Phosphorus 1.1 mg/dL (2.5-5.0); Potassium 4.1 mmol/L (3.5-5.0); eGFR CKD-EPI 109.2 (>60)
[2022-01-26] MEDS ORDERED: Magnesium Sulfate 2 gm BAG 2 GM/50 ML BAG IVPB ONE ×3 (05:21→21:00)
[2022-01-26 05:52] LABS: ABS Basophils 0.1 10^3/ul (0-0.2); ABS Lymphocytes 1.2 10^3/ul (1.0-4.8); ABS Neutrophils 13.4 10^3/ul (1.5-7.7); Eosinophil % 0.1 %; Lymphocyte % 7.9 %
[2022-01-26] MEDS: D5W 1/2 NS 1000 ml BAG 1,000 ML IV SCH (06:34)
[2022-01-26] MEDS: Clindamycin 600 MG/D5W BAG 600 MG/50 ML BAG IV SCH (07:28)
[2022-01-26] MEDS ORDERED: Dextrose 50% Syringe 50 ml 25 GM/50 ML SYRINGE IV PUSH PRN (08:19)
[2022-01-26] MEDS ORDERED: Potassium Phosphate IV 15 MMOLE in NS 0.9% 250 ml 250 ML IVPB ONE ×2 (09:00→17:05)
[2022-01-26] MEDS: Insulin GLARGINE 100 un/ml 10 ml VIAL SUBCUT SCH (09:22)
[2022-01-26 11:24] LABS: PCO2 Arterial 30 mmHg (35-45); PO2 Arterial 72 mmHg (80-100)
[2022-01-26] MEDS: Potassium & Sodium Phos 250 mg = 1 PACKET PO SCH ×2 (14:26→20:46)
[2022-01-26] MEDS: Acetaminophen IV 1 GM/100ML 1,000 MG/100 ML BAG IV SCH ×2 (14:27→21:47)
[2022-01-26 14:36] LABS: Calcium 7.8 mg/dL (8.6-10.3); Magnesium 1.8 mg/dL (1.9-2.7); Phosphorus 1.2 mg/dL (2.5-5.0); Potassium 4.1 mmol/L (3.5-5.0); eGFR CKD-EPI 114.2 (>60)
[2022-01-26] MEDS ORDERED: Midazolam 2 mg/2 ml VIAL 1 mg/ml 2 ml VIAL (2 mg) ONE (14:56)
[2022-01-26] MEDS ORDERED: Propofol 10 MG/ML 20 ML BTL ONE (14:56)
[2022-01-26] MEDS ORDERED: Lidocaine 2% PF 5 ML VIAL ONE (14:56)
[2022-01-26] MEDS ORDERED: fentaNYL 100 mcg/2 ml 50 MCG/ML VIAL ONE (14:56)
[2022-01-26] MEDS ORDERED: HYDROmorphone 1 MG/1 ML SYRINGE IV PRN (15:42)
[2022-01-26] MEDS ORDERED: Ondansetron 4 mg VIAL 2 MG/ML 2 ml VIAL IV PRN (15:42)
[2022-01-26] MEDS ORDERED: Naloxone 0.4 mg VIAL 0.4 mg/ml 1 ml VIAL IV PRN (15:42)
[2022-01-26] MEDS ORDERED: Phenylephrine 40 mcg/mL 10mL (400mcg) SYRINGE ONE (15:44)
[2022-01-26] MEDS ORDERED: Ondansetron 4 mg VIAL 2 MG/ML 2 ml VIAL ONE (15:51)
[2022-01-26] MEDS ORDERED: HYDROmorphone 1 MG/1 ML SYRINGE ONE (16:56)
[2022-01-26] MEDS: Enoxaparin 40 MG/0.4 ML SYR SUBCUT SCH (17:56)
[2022-01-26] MEDS: metroNIDAZOLE IV 500 MG/100ML 500 MG/100 ML BAG IVPB SCH (18:36)
[2022-01-27] MEDS: metroNIDAZOLE IV 500 MG/100ML 500 MG/100 ML BAG IVPB SCH ×3 (02:12→17:21)
[2022-01-27] MEDS ORDERED: guaiFENesin 100 mg/5 ml LIQ unit dose cup PO PRN (08:52)
[2022-01-27] MEDS: Insulin GLARGINE 100 un/ml 10 ml VIAL SUBCUT SCH ×2 (09:24→12:47)
[2022-01-27] MEDS: Potassium & Sodium Phos 250 mg = 1 PACKET PO SCH ×3 (09:45→20:28)
[2022-01-27] MEDS: Nicotine PATCH 7 MG/24 HR PATCH TRANSDERM SCH (09:45)
[2022-01-27] MEDS ORDERED: Vancomycin Trough Check NOTE FOLLOW UP ONE (10:00)
[2022-01-27 10:05] LABS: Hematocrit 39 % (35-47); Hemoglobin 12.9 g/dL (12.0-16.0); Mean Corpuscular HGB Conc 33 g/dL (31-36); Mean Corpuscular Hemoglobin 28 pg (27-31); Mean Corpuscular Volume 84 fL (80-97); Mean Platelet Volume 7.5 fL (7.4-10.4); Platelet Count 267 10^3/uL (150-450); Red Blood Count 4.66 10^6 /uL (3.70-4.87); Red Cell Distribution Width 14 % (10-15); White Blood Count 11.1 10^3/uL (3.5-10.8)
[2022-01-27 10:27] LABS: ABS Basophils 0.1 10^3/ul (0-0.2); ABS Lymphocytes 1.1 10^3/ul (1.0-4.8); ABS Monocytes 0.5 10^3/ul (0-0.8); ABS Neutrophils 9.4 10^3/ul (1.5-7.7); Eosinophil % 0.3 %; Lymphocyte % 9.8 %
[2022-01-27 10:47] LABS: Magnesium 1.9 mg/dL (1.9-2.7); Phosphorus 1.9 mg/dL (2.5-5.0); Potassium 4.4 mmol/L (3.5-5.0); eGFR CKD-EPI 113.5 (>60)
[2022-01-27] MEDS: Cefepime 2 GM in Dextrose 2 GM/50 ML BAG IV SCH ×2 (11:17→22:06)
[2022-01-27] MEDS: Ondansetron 4 mg VIAL 2 MG/ML 2 ml VIAL IV ONE ×2 (15:01→18:18)
[2022-01-27] MEDS: Enoxaparin 40 MG/0.4 ML SYR SUBCUT SCH (17:21)
[2022-01-28] MEDS: metroNIDAZOLE IV 500 MG/100ML 500 MG/100 ML BAG IVPB SCH ×3 (01:58→22:21)
[2022-01-28] MEDS ORDERED: Ondansetron 4 mg VIAL 2 MG/ML 2 ml VIAL IV ONE (03:46)
[2022-01-28 07:01] LABS: ABS Eosinophils 0.1 10^3/ul (0-0.6); ABS Monocytes 0.5 10^3/ul (0-0.8); ABS Neutrophils 7.7 10^3/ul (1.5-7.7); Hematocrit 38 % (35-47); Hemoglobin 12.6 g/dL (12.0-16.0); Lymphocyte % 10.2 %; Mean Corpuscular HGB Conc 34 g/dL (31-36); Mean Corpuscular Hemoglobin 28 pg (27-31); Mean Corpuscular Volume 83 fL (80-97); Mean Platelet Volume 7.7 fL (7.4-10.4); Platelet Count 283 10^3/uL (150-450); Red Blood Count 4.52 10^6 /uL (3.70-4.87); Red Cell Distribution Width 14 % (10-15); White Blood Count 9.3 10^3/uL (3.5-10.8)
[2022-01-28 07:13] LABS: Calcium 7.9 mg/dL (8.6-10.3); Magnesium 1.7 mg/dL (1.9-2.7); Phosphorus 2.7 mg/dL (2.5-5.0); Potassium 3.6 mmol/L (3.5-5.0); eGFR CKD-EPI 120.6 (>60)
[2022-01-28] MEDS ORDERED: Magnesium Sulf 4 GM/100 ML IV 4,000 MG/100 ML BAG IVPB ONE (07:16)
[2022-01-28] MEDS: Potassium & Sodium Phos 250 mg = 1 PACKET PO SCH ×3 (08:41→19:44)
[2022-01-28] MEDS: Insulin GLARGINE 100 un/ml 10 ml VIAL SUBCUT SCH (08:42)
[2022-01-28] MEDS: KCL 20 MEQ/100 ML IVPREMIX 20 MEQ/100 ML BAG IV SCH ×2 (08:42→11:12)
[2022-01-28] MEDS ORDERED: Insulin GLARGINE 100 un/ml 10 ml VIAL SUBCUT SCH ×2 (09:00)
[2022-01-28] MEDS: Nicotine PATCH 7 MG/24 HR PATCH TRANSDERM SCH (11:07)
[2022-01-28] MEDS: HYDROmorphone 0.5 MG/0.5 ML SYRINGE IV SLOW PU PRN ×2 (11:12→19:46)
[2022-01-28] MEDS: Cefepime 2 GM in Dextrose 2 GM/50 ML BAG IV SCH (13:18)
[2022-01-28] MEDS: Enoxaparin 40 MG/0.4 ML SYR SUBCUT SCH (17:53)
[2022-01-29] MEDS: Cefepime 2 GM in Dextrose 2 GM/50 ML BAG IV SCH (00:09)
[2022-01-29] MEDS: metroNIDAZOLE IV 500 MG/100ML 500 MG/100 ML BAG IVPB SCH ×3 (05:50→22:02)
[2022-01-29] MEDS: Ondansetron 4 mg VIAL 2 MG/ML 2 ml VIAL IV PRN (05:57)
[2022-01-29 06:36] LABS: Hematocrit 37 % (35-47); Hemoglobin 12.4 g/dL (12.0-16.0); Mean Corpuscular HGB Conc 33 g/dL (31-36); Mean Corpuscular Hemoglobin 28 pg (27-31); Mean Corpuscular Volume 83 fL (80-97); Mean Platelet Volume 7.5 fL (7.4-10.4); Platelet Count 301 10^3/uL (150-450); Red Blood Count 4.45 10^6 /uL (3.70-4.87); Red Cell Distribution Width 13 % (10-15); White Blood Count 8.8 10^3/uL (3.5-10.8)
[2022-01-29 06:58] LABS: Calcium 7.9 mg/dL (8.6-10.3); Phosphorus 3.3 mg/dL (2.5-5.0); Potassium 3.9 mmol/L (3.5-5.0); eGFR CKD-EPI 121.5 (>60)
[2022-01-29] MEDS ORDERED: Insulin GLARGINE 100 un/ml 10 ml VIAL SUBCUT SCH (09:00)
[2022-01-29 09:25] LABS: ABS Eosinophils 0.2 10^3/ul (0-0.6); ABS Lymphocytes 1.6 10^3/ul (1.0-4.8); ABS Monocytes 0.8 10^3/ul (0-0.8); ABS Neutrophils 6.1 10^3/ul (1.5-7.7); Eosinophil % 2.8 %; Lymphocyte % 18.4 %; Nucleated Red Blood Cells % 0.1
[2022-01-29] MEDS: Potassium & Sodium Phos 250 mg = 1 PACKET PO SCH ×3 (09:32→21:06)
[2022-01-29] MEDS: Insulin GLARGINE 100 un/ml 10 ml VIAL SUBCUT SCH (09:32)
[2022-01-29] MEDS: Nicotine PATCH 7 MG/24 HR PATCH TRANSDERM SCH (09:34)
[2022-01-29] MEDS ORDERED: Senna TAB 8.6 mg TAB PO PRN (09:57)
[2022-01-29] MEDS ORDERED: Polyethylene Glycol 3350 17 GM PACKET PO SCH (10:00)
[2022-01-29] MEDS: cefTRIAXone 1 gm/50 mL D5W 1 GM/50 ML BAG IV SCH (10:49)
[2022-01-29] MEDS: HYDROmorphone 0.5 MG/0.5 ML SYRINGE IV SLOW PU PRN ×2 (16:26→21:09)
[2022-01-29] MEDS ORDERED: CMCS:LINACLOTIDE 72 MCG CAP (NF) PO PRN (16:46)
[2022-01-29] MEDS: Enoxaparin 40 MG/0.4 ML SYR SUBCUT SCH (17:58)
[2022-01-29] MEDS: Polyethylene Glycol 3350 17 GM PACKET PO SCH (21:06)
[2022-01-30] MEDS: Ondansetron 4 mg VIAL 2 MG/ML 2 ml VIAL IV PRN (02:41)
[2022-01-30] MEDS: metroNIDAZOLE IV 500 MG/100ML 500 MG/100 ML BAG IVPB SCH ×3 (06:00→21:50)
[2022-01-30 07:00] LABS: ABS Eosinophils 0.3 10^3/ul (0-0.6); ABS Lymphocytes 2.1 10^3/ul (1.0-4.8); ABS Monocytes 0.8 10^3/ul (0-0.8); ABS Neutrophils 6.3 10^3/ul (1.5-7.7); Eosinophil % 3.4 %; Hematocrit 37 % (35-47); Hemoglobin 12.5 g/dL (12.0-16.0); Mean Corpuscular HGB Conc 34 g/dL (31-36); Mean Corpuscular Hemoglobin 28 pg (27-31); Mean Corpuscular Volume 83 fL (80-97); Mean Platelet Volume 7.1 fL (7.4-10.4); Platelet Count 370 10^3/uL (150-450); Red Blood Count 4.47 10^6 /uL (3.70-4.87); Red Cell Distribution Width 13 % (10-15); White Blood Count 9.5 10^3/uL (3.5-10.8)
[2022-01-30 07:13] LABS: Calcium 8.2 mg/dL (8.6-10.3); Magnesium 1.8 mg/dL (1.9-2.7); Potassium 4.1 mmol/L (3.5-5.0); eGFR CKD-EPI 122.4 (>60)
[2022-01-30] MEDS: Nicotine PATCH 7 MG/24 HR PATCH TRANSDERM SCH (09:09)
[2022-01-30] MEDS: Polyethylene Glycol 3350 17 GM PACKET PO SCH ×2 (09:15→21:43)
[2022-01-30] MEDS: Magnesium Hydroxide LIQ 30 ML UDC PO PRN ×2 (09:16→21:50)
[2022-01-30] MEDS: Potassium & Sodium Phos 250 mg = 1 PACKET PO SCH ×3 (09:17→21:42)
[2022-01-30] MEDS: Insulin GLARGINE 100 un/ml 10 ml VIAL SUBCUT SCH (09:19)
[2022-01-30] MEDS ORDERED: Magnesium Sulfate IV 3 GM in NS 0.9% 100 ml BAG 100 ML IVPB ONE (09:39)
[2022-01-30] MEDS: cefTRIAXone 1 gm/50 mL D5W 1 GM/50 ML BAG IV SCH (11:33)
[2022-01-30] MEDS: HYDROmorphone 0.5 MG/0.5 ML SYRINGE IV SLOW PU PRN (16:07)
[2022-01-30] MEDS: Enoxaparin 40 MG/0.4 ML SYR SUBCUT SCH (17:39)
[2022-01-31] MEDS: metroNIDAZOLE IV 500 MG/100ML 500 MG/100 ML BAG IVPB SCH ×3 (05:34→21:38)
[2022-01-31] MEDS: Nicotine PATCH 7 MG/24 HR PATCH TRANSDERM SCH (09:01)
[2022-01-31] MEDS: Polyethylene Glycol 3350 17 GM PACKET PO SCH ×2 (09:11→21:37)
[2022-01-31] MEDS: Potassium & Sodium Phos 250 mg = 1 PACKET PO SCH ×3 (09:11→21:37)
[2022-01-31] MEDS: Insulin GLARGINE 100 un/ml 10 ml VIAL SUBCUT SCH (09:42)
[2022-01-31] MEDS: cefTRIAXone 1 gm/50 mL D5W 1 GM/50 ML BAG IV SCH (10:14)
[2022-01-31] MEDS: HYDROmorphone 0.5 MG/0.5 ML SYRINGE IV SLOW PU PRN (12:52)
[2022-01-31] MEDS: Ondansetron 4 mg VIAL 2 MG/ML 2 ml VIAL IV PRN (12:56)
[2022-01-31] MEDS ORDERED: Polyethylene Glycol 3350 17 GM PACKET PO PRN (14:48)
[2022-01-31] MEDS: Enoxaparin 40 MG/0.4 ML SYR SUBCUT SCH (17:04)
[2022-02-01] MEDS: metroNIDAZOLE IV 500 MG/100ML 500 MG/100 ML BAG IVPB SCH ×2 (05:43→14:18)
[2022-02-01] MEDS: Ondansetron 4 mg VIAL 2 MG/ML 2 ml VIAL IV PRN (05:43)
[2022-02-01 06:18] LABS: ABS Eosinophils 0.4 10^3/ul (0-0.6); ABS Lymphocytes 2.3 10^3/ul (1.0-4.8); ABS Monocytes 1.2 10^3/ul (0-0.8); ABS Neutrophils 7.1 10^3/ul (1.5-7.7); Eosinophil % 3.2 %; Hematocrit 36 % (35-47); Hemoglobin 11.7 g/dL (12.0-16.0); Lymphocyte % 20.6 %; Mean Corpuscular HGB Conc 33 g/dL (31-36); Mean Corpuscular Hemoglobin 28 pg (27-31); Mean Corpuscular Volume 85 fL (80-97); Mean Platelet Volume 6.9 fL (7.4-10.4); Nucleated Red Blood Cells % 0.1; Platelet Count 413 10^3/uL (150-450); Red Blood Count 4.23 10^6 /uL (3.70-4.87); Red Cell Distribution Width 13 % (10-15)
[2022-02-01 06:33] LABS: Calcium 8.1 mg/dL (8.6-10.3); Magnesium 1.8 mg/dL (1.9-2.7); Potassium 4.8 mmol/L (3.5-5.0); eGFR CKD-EPI 117.5 (>60)
[2022-02-01] MEDS ORDERED: Magnesium Sulfate 2 gm BAG 2 GM/50 ML BAG IVPB ONE (06:59)
[2022-02-01] MEDS: Polyethylene Glycol 3350 17 GM PACKET PO SCH ×2 (09:19→21:13)
[2022-02-01] MEDS: Nicotine PATCH 7 MG/24 HR PATCH TRANSDERM SCH (09:19)
[2022-02-01] MEDS: Potassium & Sodium Phos 250 mg = 1 PACKET PO SCH ×3 (09:31→21:10)
[2022-02-01] MEDS: Insulin GLARGINE 100 un/ml 10 ml VIAL SUBCUT SCH (09:32)
[2022-02-01] MEDS: cefTRIAXone 1 gm/50 mL D5W 1 GM/50 ML BAG IV SCH (10:34)
[2022-02-01] MEDS: Enoxaparin 40 MG/0.4 ML SYR SUBCUT SCH (18:14)
[2022-02-02 05:46] LABS: ABS Eosinophils 0.3 10^3/ul (0-0.6); ABS Lymphocytes 2.7 10^3/ul (1.0-4.8); ABS Monocytes 1.3 10^3/ul (0-0.8); ABS Neutrophils 8.2 10^3/ul (1.5-7.7); Eosinophil % 2.2 %; Hematocrit 35 % (35-47); Hemoglobin 11.7 g/dL (12.0-16.0); Lymphocyte % 21.6 %; Mean Corpuscular HGB Conc 33 g/dL (31-36); Mean Corpuscular Hemoglobin 28 pg (27-31); Mean Corpuscular Volume 84 fL (80-97); Mean Platelet Volume 6.5 fL (7.4-10.4); Platelet Count 459 10^3/uL (150-450); Red Blood Count 4.23 10^6 /uL (3.70-4.87); Red Cell Distribution Width 13 % (10-15); White Blood Count 12.6 10^3/uL (3.5-10.8)
[2022-02-02] MEDS: Ondansetron 4 mg VIAL 2 MG/ML 2 ml VIAL IV PRN (05:46)
[2022-02-02 06:04] LABS: Calcium 7.9 mg/dL (8.6-10.3); Magnesium 1.8 mg/dL (1.9-2.7); Potassium 4.5 mmol/L (3.5-5.0); eGFR CKD-EPI 116.1 (>60)
[2022-02-02] MEDS ORDERED: Magnesium Sulfate 2 gm BAG 2 GM/50 ML BAG IVPB ONE (07:59)
[2022-02-02] MEDS: Insulin GLARGINE 100 un/ml 10 ml VIAL SUBCUT SCH (09:14)
[2022-02-02] MEDS: Polyethylene Glycol 3350 17 GM PACKET PO SCH (09:16)
[2022-02-02] MEDS: Nicotine PATCH 7 MG/24 HR PATCH TRANSDERM SCH (09:16)
[2022-02-02] MEDS: Potassium & Sodium Phos 250 mg = 1 PACKET PO SCH ×2 (09:24→13:31)
[2022-02-02 10:14] LABS: C Reactive Protein 23.73 mg/L (<8.01)
[2022-02-02 11:31] VITALS: BP 121/67
[2022-02-02] MEDS ORDERED: HYDROmorphone 0.5 MG/0.5 ML SYRINGE IV SLOW PU ONE (13:37)
== END 2022-02-02 15:15 | disposition home or self-care (01) | DRG 853 ==
LOC: ED 04:24 → OR 11:28 → ICU 13:26 → SUATTDRO 13:26 → SSU 01-26 22:53
PROVIDERS: ADMIT Internal Medicine; ATTEND Student in an Organized Health Care Education/Training Program